=== PATIENT | female | born 1950 | race Caucasian/White ===

== ENCOUNTER 2023-03-12 08:28 | Day surgery (SDC) | payer MEDICARE, BC ==
[2023-03-12] VITALS (435 sets, daily range): BP systolic 127–200; BP diastolic 48–94; PULSE 48–68; TEMP 37–37.1; O2SAT 71–100
[~2023-03-12] VITALS: Ht 167.6 cm; Wt 55.5 kg
[2023-03-12 09:43] LABS: BASO # 0.1 K/mm3 (0.0-0.2); EOS # 0.2 K/mm3 (0.0-0.7); EOS % 2.4 % (0.0-4.0); GRAN % 61.5 % (42.2-75.2); LYMPH # 2.4 K/mm3 (1.2-3.4); LYMPH % 24.4 % (20.0-51.0); MEAN CELL VOLUME 96 fl (80.0-100.0); MEAN CORPUSCULAR HEMOGLOBIN 32 pg (27-31); MEAN CORPUSCULAR HGB CONC 33 g/dl (33.0-37.0); MEAN PLATELET VOLUME 9.4 fl (7.4-10.4); PLATELET COUNT 384 K/mm3 (130-400); RED BLOOD COUNT 3.45 M/mm3 (4.10-5.30)
[2023-03-12 09:45] LABS: HEMATOCRIT 33.2 % (37.0-47.0)
[2023-03-12 10:09] LABS: CALCIUM 9.6 mg/dL (8.4-10.2); CREATININE, serum 0.87 mg/dL (0.57-1.11); POTASSIUM 4.3 mmol/L (3.5-4.5)
[2023-03-12] MEDS ORDERED: TOPROL XL 25MG25 MG PO (10:29)
[2023-03-12] MEDS ORDERED: ELIQUIS 5MG PO (10:30)
[2023-03-12] MEDS ORDERED: TEMOVATE0.05% TP (10:30)
[2023-03-12] MEDS ORDERED: NORVASC 5MG5 MG/TAB PO (10:31)
[2023-03-12] MEDS ORDERED: PREMARIN VAG42.5 GM TP (10:35)
[2023-03-12] MEDS ORDERED: MULTI-VITAMIN W1 TA1 PO (10:36)
[2023-03-12] MEDS ORDERED: GLUCOSAMINE & C1 CA2 PO (10:38)
[2023-03-12] MEDS ORDERED: NATURAL POTASS595 MG PO (10:40)
[2023-03-12] MEDS ORDERED: MAGNESIUM200 MG PO (10:42)
[2023-03-12] MEDS ORDERED: GOOD NEIGH3.4 GM/Dos PO (10:43)
[2023-03-12] MEDS ORDERED: STOOL SOFTENER100 M2 PO (10:45)
[2023-03-12] MEDS ORDERED: GENTLE LAXATIVE5 MG PO (10:47)
--- NOTE | 2023-03-12 13:24 | NUR ---
SHERIFF'S SERGEANT reviewed pt's clinical record and noted she was admitted this morning for AFIB. SHERIFF'S SERGEANT met with pt @ the bedside prior to rounds to complete initial intake. Pt was pleasant , but quite anxious about her upcoming infusion, stating she is hopeful the medication will "resolve her AFIB." Pt shared she has tried several medications in the past 18 months since her diagnosis. She stated none of the medications have work and she expressed frustration over this fact. Pt is ambulatory without assistive devices and stated she would like to resume her activities not worry about her heart. Independent in her ADL's, pt resides with her , Clement in [place]. She states her primary care provider is Dr. Carlos Thakur, ph# [phone] and she fills her most of her medications @ [facility] in [place] and her steroid cream at [facility]. Pt went onto say her is her HCPOA and her son, Trae is her secondary. Pt's HCPOA is at home and not on file with the hospital. No other concerns noted.
--- NOTE | 2023-03-12 15:53 | NUR ---
PT ARRIVED AT 0845 FOR SOTALOL INFUSION. PROCEDURES WERE EXPLAINED TO THE PT. PT STATES SHE HAS URINARY RETENTION. STATES IT IS PAINFUL FOR HER IF SHE NEEDS TO EMPTY HER BLADDER AND IS REQUIRED TO WAIT. PT OPTED TO NOT EAT UNTIL AFTER THE PROCEDURE. PT WAS UP TO BATHROOM AT THE 1HR POST INFUSION VS. PT WAS SPEAKING WITH HER ABOUT HIS NOT ANSWERING HIS PHONE AT THE 2HR POST INFUSION. BP WAS ELEVATED AT 2HR DARRIAN. AT 1200 VS PT WAS STANDING AND BP WAS ELEVATED. PT IS STABLE ON ROUNDS. NO SIGN OF DISTRESS AT THIS TIME. WILL CONTINUE TO [facility].
[2023-03-13] VITALS (82 sets, daily range): BP systolic 123–142; BP diastolic 47–64; PULSE 46–57; TEMP 37; O2SAT 94–98
[2023-03-13 05:34] LABS: CALCIUM 9.2 mg/dL (8.4-10.2); CREATININE, serum 0.8 mg/dL (0.57-1.11); MAGNESIUM 2.1 mg/dL (1.6-2.6); POTASSIUM 4.4 mmol/L (3.5-4.5)
[2023-03-13] MEDS ORDERED: BETAPACE 80MG80 MG PO (09:53)
--- NOTE | 2023-03-13 10:23 | NUR ---
Initial visit; Patient declined Spiritual Care and visiting with Line Analyst. Line Analyst wished her well.
--- NOTE | 2023-03-13 10:54 | NUR ---
PT STABLE ON ROUNDS. RESPIRATIONS EVEN AND UNLABORED. NO SIGN OF DISTRESS. DISCHARGED TO HOME.
== END 2023-03-13 10:25 | disposition home or self-care (01) ==
LOC: SDCO 08:28 → ICU 08:28 → SDCO 03-13 10:25 → ICU 03-13 10:25 → EDSTATUS 03-13 12:19
DX: I48.0 Paroxysmal atrial fibrillation (principal); I73.00 Raynaud's syndrome without gangrene; Z79.01 Long term (current) use of anticoagulants; Z87.891 Personal history of nicotine dependence; Z95.818 Presence of other cardiac implants and grafts
CPT/HCPCS: OP; C9482; J7050